=== PATIENT | male | born 1950 | race Caucasian/White ===

== ENCOUNTER 2020-06-21 09:30 | Emergency (ER) | payer SELFPAY ==
[2020-06-21 10:04] VITALS: BP 123/85; PULSE 76; BMI 23.8
[2020-06-21] MEDS ORDERED: NAPROXEN 500 MG TABLET PO ONE (11:21)
[2020-06-21] MEDS ORDERED: METHOCARBAMOL 500 MG TABLET PO ONE (11:21)
[2020-06-21] MEDS ORDERED: NAPROXEN 500 MG TABLET ONE (11:25)
[2020-06-21] MEDS ORDERED: METHOCARBAMOL 500 MG TABLET ONE (11:25)
== END 2020-06-21 11:30 | disposition home or self-care (01) ==
LOC: JERFT 09:30
DX: M62.830 Muscle spasm of back (principal); M54.2 Cervicalgia; S63.502A Unspecified sprain of left wrist, initial encounter
CPT/HCPCS: 72050-TC-FY; 72100-TC-FY; 73090-TC-LT-FY; 73110-TC-LT-FY; 99285-25

== ENCOUNTER 2020-10-06 06:00 | Emergency (ER) | payer OTHER ==
[2020-10-06 06:18] VITALS: BMI 23.8
[2020-10-06] MEDS ORDERED: ONDANSETRON 4 MG/2 ML VIAL IVPUSH ONE (07:37)
[2020-10-06] MEDS ORDERED: LACTATED RINGERS SOLUTION 1000 ML INFUS.BAG IV ONE (07:37)
[2020-10-06] MEDS ORDERED: ACETAMINOPHEN 1000 MG/100 ML VIAL (NON FORMULARY) IVPB ONE (07:37)
[2020-10-06] MEDS ORDERED: ACETAMINOPHEN INJECTION 100 ML IVPB ONE (07:48)
[2020-10-06] MEDS ORDERED: ONDANSETRON 4 MG/2 ML VIAL ONE (07:49)
[2020-10-06 08:51] LABS: BASO % 0.5 % (0-2.0); EOS % 0.1 % (0-4.5); HEMATOCRIT 47.7 % (35.4-49); HEMOGLOBIN 15.7 GM/dL (11.7-16.9); LYMPH % 8.1 % (8-40); MCH 28.8 pg (25.7-33.7); MEAN CELL VOLUME 87.2 fl (80-96); MEAN PLT VOLUME 9.9 fl (7.5-11.1); MONO % 6.8 % (3.8-10.2); NEUT % 84.5 % (42.8-82.8); PLATELET COUNT 145 K/MM3 (134-434); RBC 5.47 M/mm3 (4.00-5.60); RDW 13.5 % (11.9-15.9); WHITE BLOOD COUNT 8.3 K/mm3 (4.0-10.0)
[2020-10-06 09:29] LABS: CHLORIDE 107 mmol/L (98-107); SODIUM 139 mmol/L (136-145)
[2020-10-06 09:31] LABS: CALCIUM 8.8 mg/dL (8.5-10.1)
[2020-10-06 09:32] LABS: ALBUMIN 4.3 g/dl (3.4-5.0); ANION GAP 6 MMOL/L (8-16); BLOOD UREA NITROGEN 21.6 mg/dL (7-18); CO2 27 mmol/L (21-32); GLUCOSE,RANDOM 119 mg/dL (74-106)
[2020-10-06 09:35] LABS: CREATININE 1.4 mg/dL (0.55-1.3); SGOT/AST 18 U/L (15-37); SGPT/ALT 27 U/L (13-61)
[2020-10-06 09:36] LABS: BILIRUBIN,TOTAL 0.6 mg/dL (0.2-1); TOT PROT 8.2 g/dl (6.4-8.2)
[2020-10-06 09:38] LABS: ALK PHOS 66 U/L (45-117)
[2020-10-06] MEDS ORDERED: SODIUM CHLORIDE 0.9% 500 ML INFUS.BAG IV ONE (09:45)
[2020-10-06 11:15] VITALS: BP 115/75; PULSE 66; TEMP 98.6
== END 2020-10-06 12:00 | disposition home or self-care (01) ==
LOC: JER 06:00
PROC: 3E0333Z Introduction of Anti-inflammatory into Peripheral Vein, Percutaneous Approach (ICD-10-PCS; principal; 2020-10-06)
PROC: 3E033GC Introduction of Other Therapeutic Substance into Peripheral Vein, Percutaneous Approach (ICD-10-PCS; 2020-10-06)
DX: K52.9 Noninfective gastroenteritis and colitis, unspecified (principal)
CPT/HCPCS: 36415; 71045-TC-FY; 76705-TC; 80053; 84484; 85025; 93005; 93010; 99285-25; C9803; J0131; U0003; U0005

== ENCOUNTER 2021-02-09 07:37 | Emergency (ER) | payer OTHER ==
[2021-02-09 08:03] VITALS: BP 127/77; PULSE 75; TEMP 97.7; BMI 24.8
[2021-02-09] MEDS ORDERED: IBUPROFEN 400 MG TABLET (FP) PO ONE (08:30)
[2021-02-09] MEDS ORDERED: IBUPROFEN 600 MG TABLET (FP) PO ONE (08:48)
== END 2021-02-09 09:00 | disposition home or self-care (01) ==
LOC: JER 07:37
DX: M79.671 Pain in right foot (principal); M79.672 Pain in left foot
CPT/HCPCS: 73630-TC-LT; 73630-TC-RT-FY; 99284-25

== ENCOUNTER 2021-05-13 11:41 | Emergency (ER) | payer OTHER ==
[2021-05-13 12:10] VITALS: BP 136/79; PULSE 78; TEMP 98.1; BMI 27.1
[2021-05-13] MEDS ORDERED: DIPHTH,PERTUSS(ACELL),TET 0.5 ML DISP.SYRIN IM ONE ×2 (13:08→13:24)
== END 2021-05-13 13:25 | disposition home or self-care (01) ==
LOC: JER 11:41 → JERFT 11:41
PROC: 3E0234Z Introduction of Serum, Toxoid and Vaccine into Muscle, Percutaneous Approach (ICD-10-PCS; principal; 2021-05-13)
DX: S61.231A Puncture wound without foreign body of left index finger without damage to nail, initial encounter (principal); W46.1XXA Contact with contaminated hypodermic needle, initial encounter
CPT/HCPCS: 90715; 99284-25

== ENCOUNTER 2021-10-27 09:00 | Emergency (ER) | payer OTHER ==
[2021-10-27 09:16] VITALS: BP 140/69; PULSE 80; TEMP 98.1; BMI 25.4
== END 2021-10-27 10:52 | disposition home or self-care (01) ==
LOC: JER 09:00 → JERFT 09:00
DX: S90.852A Superficial foreign body, left foot, initial encounter (principal); W25.XXXA Contact with sharp glass, initial encounter
CPT/HCPCS: 73630-TC-LT; 99283-25